=== PATIENT | male | born 1950 | race Caucasian/White ===

== ENCOUNTER 2018-10-12 08:07 | Outpatient (CLI) | payer MEDICARE, BC ==
--- NOTE | 2018-10-12 08:45 | ULT ---
ULTRASOUND RENAL DOPPLER DUPLEX: DATE: 10/12/2018 HISTORY: 68-year-old male with stage III Chronic kidney disease and hypertension FINDINGS: Right kidney: 10.5 x 7 x 5 cm Left kidney: 11 x 7 x 5.5 cm No hydronephrosis. Bladder volume 115 mm. Normal wall thickness. No moderate sized or large renal cystic or solid mass. Highest peak systolic velocity: Right renal artery: 235 cm/s Left renal artery: 145 cm/s Aorta: 105 cm/s Right renal artery/aorta ratio: 2.2 Left renal artery/aorta ratio: 1.4 Resistive index: Right arcuate: 0.70 Left arcuate: 0.65. IMPRESSION: 1) no morphologic abnormality of the kidneys identified. 2) elevated right renal artery systolic velocity. Estimated degree of stenosis less than 60%.
== END 2018-10-12 08:08 | disposition home or self-care (01) ==
LOC: BICULT 08:07
PROVIDERS: ATTEND Internal Medicine Nephrology
DX: I12.9 Hypertensive chronic kidney disease with stage 1 through stage 4 chronic kidney disease, or unspecified chronic kidney disease (principal); N18.3 Chronic kidney disease, stage 3 (moderate)
CPT/HCPCS: 36415; 76700; 76770; 80051; 82306; 82565; 82570; 83970; 84156; 84520; 85014; 85018

== ENCOUNTER 2021-03-15 08:27 | Day surgery (SDC) | payer MEDICARE ==
[2021-03-08 10:54] VITALS: BMI 25.8
[2021-03-15 09:20] LABS: INR-International Normal Ratio 0.9; PTT 27.6 sec (22.9-36.1); Prothrombin Time 12.5 sec (12.0-14.7)
[2021-03-15 12:34] VITALS: BP 122/70; TEMP 97.7
== END 2021-03-15 12:45 | disposition home or self-care (01) ==
LOC: CT 08:27
PROVIDERS: ATTEND Internal Medicine Nephrology
PROC: 0TB13ZX Excision of Left Kidney, Percutaneous Approach, Diagnostic (ICD-10-PCS; principal; 2021-03-15)
DX: I12.9 Hypertensive chronic kidney disease with stage 1 through stage 4 chronic kidney disease, or unspecified chronic kidney disease (principal); N18.4 Chronic kidney disease, stage 4 (severe); D63.1 Anemia in chronic kidney disease; R80.9 Proteinuria, unspecified; E78.5 Hyperlipidemia, unspecified; I25.10 Atherosclerotic heart disease of native coronary artery without angina pectoris; F17.210 Nicotine dependence, cigarettes, uncomplicated; M19.90 Unspecified osteoarthritis, unspecified site; E55.9 Vitamin D deficiency, unspecified; Z79.899 Other long term (current) drug therapy
CPT/HCPCS: 49060; 50200; 77002; 77012; 85610; 85730; 88305; 88313; 88329; 88346; 88348; 88350

== ENCOUNTER 2021-05-12 21:51 | Emergency (ER) | payer MEDICARE ==
[2021-05-12] MEDS ORDERED: Acetaminophen 500 MG TAB ONE (23:56)
[2021-05-13 12:15] LABS: SARS-CoV-2 PCR by NAA DETECTED (NotDetected)
== END 2021-05-13 00:35 | disposition home or self-care (01) ==
LOC: ERS 21:51
DX: U07.1 COVID-19 (principal)
CPT/HCPCS: 71045; 87804 ×2; U0003; U0005

== ENCOUNTER → 2023-10-01 | Outpatient (CLI) | payer MEDICARE | LOC: PET 09:30 | PROVIDERS: ATTEND Internal Medicine | DX: R91.8 Other nonspecific abnormal finding of lung field (principal); N18.9 Chronic kidney disease, unspecified; D63.1 Anemia in chronic kidney disease; K11.8 Other diseases of salivary glands | CPT/HCPCS: 78815; A9552 ==

== ENCOUNTER 2023-10-23 08:21 | Day surgery (SDC) | payer MEDICARE ==
[2023-10-23 08:43] LABS: #Basophils 0.11 10x3/uL (0.0-0.2); %Basophils 0.8 % (0.0-1.0); %Eosinophils 6.3 % (0.0-10.0); %Lymphocytes 9.3 % (21.0-51.0); %Monocytes 7.2 % (0.0-10.0); %Neutrophils 75.7 % (42.0-75.0); Hematocrit 31.9 % (42.0-52.0); Hemoglobin 10.4 g/dL (14.0-18.0); Mean Corpuscular HGB CONC 32.6 g/dL (32.0-36.0); Mean Corpuscular Hemoglobin 29.9 pg (27.0-31.0); Mean Corpuscular Volume 91.7 fL (78.0-98.0); Mean Platelet Volume 9.5 fL (7.4-10.4); Platelet Count 302 10x3/uL (130-400); RBC Distribution Width 16.9 % (11.5-14.5); Red Blood Cell (RBC) Count 3.48 mill/uL (4.70-6.10)
[2023-10-23 09:06] LABS: PTT 27.1 sec (22.9-36.1)
[2023-10-23] MEDS ORDERED: Lidocaine 1% w/Epinephrine 1:100K 20 ML VIAL ONE (09:28)
[2023-10-23] MEDS ORDERED: fentaNYL 50 mcg/mL 1 mL Vial ONE (09:28)
[2023-10-23] MEDS ORDERED: Midazolam HCl 2 mg/2 ml Vial ONE (09:28)
[2023-10-23] MEDS ORDERED: Sodium Bicarbonate 2.5 MEQ/5 ML SDV ONE (09:28)
[2023-10-23 09:47] VITALS: BP 139/69; TEMP 97.7
== END 2023-10-23 12:50 | disposition home or self-care (01) ==
LOC: CT 08:21
PROVIDERS: ATTEND Internal Medicine
PROC: 0FB13ZX Excision of Right Lobe Liver, Percutaneous Approach, Diagnostic (ICD-10-PCS; principal; 2023-10-23)
DX: C34.31 Malignant neoplasm of lower lobe, right bronchus or lung (principal); D11.0 Benign neoplasm of parotid gland; N18.9 Chronic kidney disease, unspecified; D63.1 Anemia in chronic kidney disease
CPT/HCPCS: 32408; 71045; 71046; 77012; 85025; 85610; 85730; 88333; 88334; C1757; J2250; J3010; 36415; 88305; 88341; 88342

== ENCOUNTER 2023-11-03 07:25 | Day surgery (SDC) | payer MEDICARE ==
[2023-10-31 09:51] VITALS: BMI 25.9
[2023-11-03] MEDS ORDERED: Bupivacaine PF 0.5% 30 ML VIAL ONE (09:10)
[2023-11-03 09:15] LABS: Hematocrit 29.9 % (42.0-52.0); Hemoglobin 9.6 g/dL (14.0-18.0); Mean Corpuscular HGB CONC 32.1 g/dL (32.0-36.0); Mean Corpuscular Hemoglobin 30.1 pg (27.0-31.0); Mean Corpuscular Volume 93.7 fL (78.0-98.0); Mean Platelet Volume 9.7 fL (7.4-10.4); Platelet Count 270 10x3/uL (130-400); RBC Distribution Width 17.1 % (11.5-14.5); Red Blood Cell (RBC) Count 3.19 mill/uL (4.70-6.10)
[2023-11-03 09:26] LABS: Anion Gap 16 mmol/L (10-20); BUN (Urea Nitrogen) 69 mg/dL (8.4-25.7); Calc. Creatinine Clearance 14 mL/min (70-130); Calcium 9.5 mg/dL (7.8-10.44); Carbon Dioxide 14 mmol/L (23-31); Chloride 113 mmol/L (98-107); Estimated GFR 11; Glucose 95 mg/dL (83-110); Potassium 5.1 mmol/L (3.5-5.1); Sodium 138 mmol/L (136-145)
[2023-11-03] MEDS ORDERED: CEFAZOLIN 2 GM VIAL ONE (09:40)
[2023-11-03] MEDS ORDERED: Sodium Chloride 0.9% 100 ML ONE (09:40)
[2023-11-03] MEDS ORDERED: fentaNYL PF 100 MCG/2 ML SYRINGE ONE (09:47)
[2023-11-03] MEDS ORDERED: Lidocaine 2% PF 5 ML VIAL ONE (09:48)
[2023-11-03] MEDS ORDERED: PROPOFOL 20 ML ONE (09:48)
[2023-11-03] MEDS ORDERED: Rocuronium Bromide 10 MG/ML (10ML VIAL) ONE (09:49)
[2023-11-03] MEDS ORDERED: NOREPINEPHRINE 8 MG/250 ML-D5W 250 ML ONE (09:49)
[2023-11-03] MEDS ORDERED: Ondansetron PF 4 MG/2 ML Vial ONE (10:24)
[2023-11-03] MEDS ORDERED: Dexamethasone 20 MG/5 ML VIAL ONE (10:24)
[2023-11-03] MEDS ORDERED: SUGAMMADEX SODIUM 200 MG/2 ML VIAL ONE (12:17)
[2023-11-03] MEDS ORDERED: HYDROcodone/Acetaminophen 5/325 mg Tablet ONE (15:29)
== END 2023-11-03 15:48 | disposition home or self-care (01) ==
LOC: SDC 07:25
PROVIDERS: ATTEND Student in an Organized Health Care Education/Training Program
PROC: 0JH60WZ Insertion of Totally Implantable Vascular Access Device into Chest Subcutaneous Tissue and Fascia, Open Approach (ICD-10-PCS; principal; 2023-11-03)
PROC: 07B74ZX Excision of Thorax Lymphatic, Percutaneous Endoscopic Approach, Diagnostic (ICD-10-PCS; 2023-11-03)
DX: C34.31 Malignant neoplasm of lower lobe, right bronchus or lung (principal); D76.3 Other histiocytosis syndromes; I12.9 Hypertensive chronic kidney disease with stage 1 through stage 4 chronic kidney disease, or unspecified chronic kidney disease; N18.9 Chronic kidney disease, unspecified; F17.210 Nicotine dependence, cigarettes, uncomplicated; Z79.899 Other long term (current) drug therapy
CPT/HCPCS: 36561; 39402; 71045; 80048; 85027; 93005; C1788; J0665; J1100; J1642; J2001; J2405; J2704; J3490; 88305; 88341; 88342; 93010

== ENCOUNTER 2023-11-11 12:18 | Outpatient (CLI) | payer MEDICARE | END 2023-11-11 12:19 | disposition home or self-care (01) | LOC: RAD 12:18 | PROVIDERS: ATTEND Student in an Organized Health Care Education/Training Program | DX: C34.31 Malignant neoplasm of lower lobe, right bronchus or lung (principal) | CPT/HCPCS: 71046 ==

== ENCOUNTER 2024-01-23 15:18 | Emergency (ER) | payer MEDICARE ==
[~2024-01-23 15:18] MED LIST: Heparin 10,000 UNITS/ 10 ML VIAL ONE
[2024-01-23 16:20] LABS: #Basophils Less than 0.03 10x3/uL (0.0-0.2); #Eosinphils Less than 0.03 10x3/uL (0.0-0.7); %Basophils 0.4 % (0.0-1.0); %Lymphocytes 27.1 % (21.0-51.0); %Monocytes 8.3 % (0.0-10.0); %Neutrophils 63.8 % (42.0-75.0); Hematocrit 19.5 % (42.0-52.0); Hemoglobin 6.1 g/dL (14.0-18.0); Mean Corpuscular HGB CONC 31.3 g/dL (32.0-36.0); Mean Corpuscular Volume 96.1 fL (78.0-98.0); Platelet Count 137 10x3/uL (130-400); Red Blood Cell (RBC) Count 2.03 mill/uL (4.70-6.10)
[2024-01-23 16:37] LABS: ALT (SGPT) 11 U/L (8-55); AST (SGOT) 8 U/L (5-34); Albumin 3.1 g/dL (3.4-4.8); Alkaline Phosphatase 68 U/L (40-110); Anion Gap 15 mmol/L (10-20); BUN (Urea Nitrogen) 58 mg/dL (8.4-25.7); Bilirubin, Total 0.3 mg/dL (0.2-1.2); Calc. Creatinine Clearance 0 mL/min (70-130); Calcium 8.8 mg/dL (7.8-10.44); Carbon Dioxide 24 mmol/L (23-31); Chloride 102 mmol/L (98-107); Estimated GFR 8; Globulin 3.1 g/dL (2.4-3.5); Glucose 81 mg/dL (83-110); Potassium 4.3 mmol/L (3.5-5.1); Protein, Total 6.2 g/dL (5.8-8.1); Sodium 137 mmol/L (136-145)
[2024-01-23] MEDS ORDERED: Epoetin (ESRD) 10,000 UNITS/ML VIAL IVP SCH (22:00)
[2024-01-23] MEDS ORDERED: EPOETIN ALFA-EPBX 10,000 UNITS/ML VIAL SC SCH (22:00)
[2024-01-23 23:37] LABS: HBSAB Concentration Less than 8.00 mIU/mL; HBsAg Index 0.29 S/CO (0-0.99); Hep B Core Total Ab NONREACTIVE (NonReactive); Hep B Core Total Index 0.09 S/CO (0-0.79); Hep B Surf AB NONREACTIVE (NonReactive); Hep B Surf Ag NONREACTIVE S/CO (NonReactive); Hep C IgG Ab NONREACTIVE S/CO (NonReactive); Hep C Index 0.05 S/CO (0-0.79)
[2024-01-30] MEDS ORDERED: EPOETIN ALFA-EPBX 10,000 UNITS/ML VIAL SC SCH (21:00)
== END 2024-01-24 03:52 | disposition home or self-care (01) ==
LOC: ERS 15:18
DX: N18.6 End stage renal disease (principal); D63.1 Anemia in chronic kidney disease; I12.0 Hypertensive chronic kidney disease with stage 5 chronic kidney disease or end stage renal disease; Z99.2 Dependence on renal dialysis; Z87.891 Personal history of nicotine dependence; Z79.82 Long term (current) use of aspirin
CPT/HCPCS: 36430; 80053; 85025; 86704; 86706; 86803; 86850; 86900; 86901; 86920; 87340; 99284; J1644; P9016; 36415

== ENCOUNTER 2024-01-29 06:18 | Inpatient (IN) | payer MEDICARE ==
[2024-01-28 10:34] VITALS: BMI 24.6
[2024-01-29] MEDS ORDERED: Protamine Sulfate 50 MG/5 ML VIAL ONE (07:02)
[2024-01-29] MEDS ORDERED: Heparin 5,000 UNITS/ML VIAL ONE (07:02)
[2024-01-29] MEDS ORDERED: Bupivacaine PF 0.5% 30 ML VIAL ONE (07:02)
[2024-01-29] MEDS ORDERED: EPINEPHrine 1 MG/ML VIAL ONE (07:02)
[2024-01-29 07:23] LABS: Hematocrit 24.8 % (42.0-52.0); Hemoglobin 7.9 g/dL (14.0-18.0); Mean Corpuscular HGB CONC 31.9 g/dL (32.0-36.0); Mean Corpuscular Hemoglobin 29.9 pg (27.0-31.0); Mean Corpuscular Volume 93.9 fL (78.0-98.0); Mean Platelet Volume 9.5 fL (7.4-10.4); Platelet Count 186 10x3/uL (130-400); RBC Distribution Width 17.2 % (11.5-14.5); Red Blood Cell (RBC) Count 2.64 mill/uL (4.70-6.10)
[2024-01-29 07:43] LABS: Anion Gap 11 mmol/L (10-20); BUN (Urea Nitrogen) 25 mg/dL (8.4-25.7); Calc. Creatinine Clearance 15 mL/min (70-130); Carbon Dioxide 29 mmol/L (23-31); Chloride 101 mmol/L (98-107); Estimated GFR 12; Glucose 101 mg/dL (83-110); Potassium 4.1 mmol/L (3.5-5.1); Sodium 137 mmol/L (136-145)
[2024-01-29 08:13] LABS: Band 5 % (5-11); Lymphocytes 22 % (21-51); Monocytes 20 % (0-10); Neutrophil 49 % (42-75); Platelet Adequacy Comment Platelets Normal; RBC Morphology Within Normal Limits; Reactive Lymphocytes 2 % (0-10)
[2024-01-29] MEDS ORDERED: Ondansetron PF 4 MG/2 ML Vial ONE (10:34)
[2024-01-29] MEDS ORDERED: Lidocaine 1% PF 5 ML VIAL ONE (10:34)
[2024-01-29] MEDS ORDERED: Dexamethasone 20 MG/5 ML VIAL ONE (10:34)
[2024-01-29] MEDS ORDERED: PROPOFOL 20 ML ONE (10:35)
[2024-01-29] MEDS ORDERED: fentaNYL 50 mcg/mL 1 mL Vial ONE ×2 (10:35→11:57)
[2024-01-29] MEDS ORDERED: Heparin 10,000 UNITS/ 10 ML VIAL ONE (10:36)
[2024-01-29] MEDS ORDERED: Bupivacaine 0.25% HCL 30 ML VIAL ONE (10:36)
[2024-01-29] MEDS ORDERED: CEFAZOLIN 1 GM VIAL ONE (11:08)
[2024-01-29] MEDS ORDERED: Sodium Chloride 0.9% 250 ML 250 ML ONE ×2 (11:50)
[2024-01-29] MEDS ORDERED: Heparin 1,000 UNITS/ML VIAL ONE (14:04)
[2024-01-29] MEDS ORDERED: HYDROcodone/Acetaminophen 5/325 mg Tablet ONE (14:15)
== END 2024-01-29 15:14 | disposition home or self-care (01) | DRG 981 ==
LOC: SURG A 06:18 → EDSTATUS 15:53
PROVIDERS: ADMIT Specialist; ATTEND Specialist
PROC: 05S90ZZ Reposition Right Brachial Vein, Open Approach (ICD-10-PCS; principal; 2024-01-29)
PROC: 30233N1 Transfusion of Nonautologous Red Blood Cells into Peripheral Vein, Percutaneous Approach (ICD-10-PCS; 2024-01-29)
PROC: 3E033XZ Introduction of Vasopressor into Peripheral Vein, Percutaneous Approach (ICD-10-PCS; 2024-01-29)
DX: I12.0 Hypertensive chronic kidney disease with stage 5 chronic kidney disease or end stage renal disease (principal); N18.6 End stage renal disease; C34.91 Malignant neoplasm of unspecified part of right bronchus or lung; E11.22 Type 2 diabetes mellitus with diabetic chronic kidney disease; Z79.899 Other long term (current) drug therapy; D63.1 Anemia in chronic kidney disease; Z99.2 Dependence on renal dialysis; L98.8 Other specified disorders of the skin and subcutaneous tissue; Z98.890 Other specified postprocedural states
CPT/HCPCS: 36430; 80048; 85025; 86850; 86900; 86901; J0171; J0665; J0690; J1100; J1642; J1644; J2405; J2704; J2720; J3010; J7050; P9016

== ENCOUNTER 2024-02-03 11:00 | Outpatient (CLI) | payer MEDICARE | END 2024-02-03 11:01 | disposition home or self-care (01) | LOC: PET 11:00 | PROVIDERS: ATTEND Internal Medicine | DX: C34.32 Malignant neoplasm of lower lobe, left bronchus or lung (principal); R91.1 Solitary pulmonary nodule; K11.8 Other diseases of salivary glands | CPT/HCPCS: 78815; A9552 ==

== ENCOUNTER 2024-02-23 09:09 | Outpatient (CLI) | payer MEDICARE | END 2024-02-23 09:10 | disposition home or self-care (01) | LOC: LABBT 09:09 | PROVIDERS: ATTEND Student in an Organized Health Care Education/Training Program | DX: Z01.818 Encounter for other preprocedural examination (principal); C34.31 Malignant neoplasm of lower lobe, right bronchus or lung | CPT/HCPCS: 71046; 93005; 93010 ==

== ENCOUNTER 2024-02-24 08:30 | Inpatient (IN) | payer MEDICARE ==
[2024-02-26] MEDS ORDERED: Bupivacaine 0.25% HCL 30 ML VIAL ONE (06:41)
[2024-02-26] MEDS ORDERED: EPINEPHrine 1 MG/ML VIAL ONE (06:41)
[2024-02-26] MEDS ORDERED: Rocuronium Bromide 10 MG/ML (10ML VIAL) ONE ×2 (06:59→09:23)
[2024-02-26] MEDS ORDERED: Lidocaine 1% PF 5 ML VIAL ONE (06:59)
[2024-02-26] MEDS ORDERED: PROPOFOL 20 ML ONE (06:59)
[2024-02-26] MEDS ORDERED: fentaNYL PF 100 MCG/2 ML SYRINGE ONE ×2 (06:59→11:29)
[2024-02-26] MEDS ORDERED: CEFAZOLIN 2 GM VIAL ONE (07:29)
[2024-02-26] MEDS ORDERED: PHENYLEPHRINE-NS 100 MCG/ML 10 ML SYRINGE ONE (07:39)
[2024-02-26 07:55] LABS: #Basophils 0.06 10x3/uL (0.0-0.2); #Eosinophils Less than 0.03 10x3/uL (0.0-0.7); %Basophils 0.7 % (0.0-1.0); %Eosinophils 0.1 % (0.0-10.0); %Lymphocytes 13.6 % (21.0-51.0); %Monocytes 11.2 % (0.0-10.0); %Neutrophils 73.4 % (42.0-75.0); Hematocrit 26.8 % (42.0-52.0); Hemoglobin 8.6 g/dL (14.0-18.0); Mean Corpuscular HGB CONC 32.1 g/dL (32.0-36.0); Mean Corpuscular Hemoglobin 33.2 pg (27.0-31.0); Mean Corpuscular Volume 103.5 fL (78.0-98.0); Mean Platelet Volume 9.6 fL (7.4-10.4); Platelet Count 232 10x3/uL (130-400); RBC Distribution Width 21.7 % (11.5-14.5); Red Blood Cell (RBC) Count 2.59 mill/uL (4.70-6.10)
[2024-02-26] MEDS ORDERED: Dexamethasone 4 mg/ml Vial ONE ×2 (08:17)
[2024-02-26] MEDS ORDERED: Ondansetron PF 4 MG/2 ML Vial ONE (08:17)
[2024-02-26 08:23] LABS: Anion Gap 17 mmol/L (10-20); BUN (Urea Nitrogen) 29 mg/dL (8.4-25.7); Calc. Creatinine Clearance 15 mL/min (70-130); Calcium 9.4 mg/dL (7.8-10.44); Carbon Dioxide 28 mmol/L (23-31); Chloride 99 mmol/L (98-107); Estimated GFR 12; Glucose 109 mg/dL (83-110); Potassium 3.8 mmol/L (3.5-5.1); Sodium 140 mmol/L (136-145)
[2024-02-26] MEDS ORDERED: Phenylephrine 40 MG/NS 250 ML 250 ML ONE (08:30)
[2024-02-26] MEDS ORDERED: SUGAMMADEX SODIUM 200 MG/2 ML VIAL ONE ×2 (11:46→11:51)
[2024-02-26] MEDS ORDERED: Promethazine HCl 25 MG/ML VIAL IM PRN (12:12)
[2024-02-26] MEDS ORDERED: Ondansetron HCl/PF 4 MG/2 ML Vial IVP PRN (12:12)
[2024-02-26] MEDS ORDERED: Mineral Oil ENEMA PR PRN (13:17)
[2024-02-26] MEDS ORDERED: traMADol HCl 50 MG TAB PO PRN (13:17)
[2024-02-26] MEDS ORDERED: Ondansetron PF 4 MG/2 ML Vial IVP PRN (13:17)
[2024-02-26] MEDS ORDERED: Ipratropium/Albuterol 3 ML NEB NEB PRN (13:17)
[2024-02-26] MEDS ORDERED: Milk Of Magnesia 30 ML UDCUP PO PRN (13:17)
[2024-02-26] MEDS ORDERED: Cyclobenzaprine 10 MG TAB PO PRN (13:17)
[2024-02-26] MEDS ORDERED: traZODone HCl 50 MG TAB PO PRN (13:17)
[2024-02-26] MEDS ORDERED: CEFAZOLIN 2 GM in Sodium Chloride 0.9% 100 ML IVPB SCH ×2 (14:00→16:00)
[2024-02-26 14:41] VITALS: BMI 25.0
[2024-02-26] MEDS: Acetaminophen 325 MG TAB PO SCH (16:07)
[2024-02-26] MEDS: Heparin 5,000 UNITS/ML VIAL SC SCH (16:08)
[2024-02-26] MEDS: Sevelamer Carbonate 800 MG TAB PO SCH (16:08)
[2024-02-26] MEDS: Gabapentin 100 MG CAP PO SCH (16:08)
[2024-02-26] MEDS: HYDROcodone/Acetaminophen 5/325 mg Tablet PO PRN (16:12)
[2024-02-26] MEDS ORDERED: Ketorolac Tromethamine 30 MG (1 mL) VIAL IVP SCH (18:00)
[2024-02-26 18:20] LABS: HBSAB Concentration Less than 8.00 mIU/mL; HBsAg Index 0.28 S/CO (0-0.99); Hep B Core Total Ab NONREACTIVE (NonReactive); Hep B Core Total Index 0.07 S/CO (0-0.79); Hep B Surf AB NONREACTIVE (NonReactive); Hep B Surf Ag NONREACTIVE S/CO (NonReactive); Hep C IgG Ab NONREACTIVE S/CO (NonReactive); Hep C Index 0.06 S/CO (0-0.79)
[2024-02-26] MEDS: Carvedilol 6.25 MG TAB PO SCH (20:50)
[2024-02-26] MEDS: Rosuvastatin 10 MG TAB PO SCH (20:51)
[2024-02-27 04:01] LABS: #Basophils 0.04 10x3/uL (0.0-0.2); #Eosinophils Less than 0.03 10x3/uL (0.0-0.7); %Basophils 0.3 % (0.0-1.0); %Lymphocytes 10.7 % (21.0-51.0); %Monocytes 11.9 % (0.0-10.0); %Neutrophils 76.5 % (42.0-75.0); Hematocrit 24.7 % (42.0-52.0); Hemoglobin 7.8 g/dL (14.0-18.0); Mean Corpuscular HGB CONC 31.6 g/dL (32.0-36.0); Mean Corpuscular Hemoglobin 32.8 pg (27.0-31.0); Mean Corpuscular Volume 103.8 fL (78.0-98.0); Mean Platelet Volume 9.9 fL (7.4-10.4); Platelet Count 193 10x3/uL (130-400); RBC Distribution Width 22.3 % (11.5-14.5); Red Blood Cell (RBC) Count 2.38 mill/uL (4.70-6.10)
[2024-02-27 04:18] LABS: Anion Gap 16 mmol/L (10-20); BUN (Urea Nitrogen) 43 mg/dL (8.4-25.7); Calc. Creatinine Clearance 11 mL/min (70-130); Calcium 8.8 mg/dL (7.8-10.44); Carbon Dioxide 27 mmol/L (23-31); Chloride 100 mmol/L (98-107); Estimated GFR 9; Glucose 114 mg/dL (83-110); Potassium 4.1 mmol/L (3.5-5.1); Sodium 139 mmol/L (136-145)
[2024-02-27] MEDS ORDERED: Heparin 10,000 UNITS/ 10 ML VIAL ONE (09:42)
[2024-02-27] MEDS: Aspirin 81 mg Enteric Coated Tablet PO SCH (10:48)
[2024-02-27] MEDS: Docusate Sodium 100 MG/10 ML UDCUP PO SCH (10:48)
[2024-02-27] MEDS: hydrALAZINE 25 MG TAB PO SCH (10:49)
[2024-02-27] MEDS ORDERED: Epoetin (ESRD) 10,000 UNITS/ML VIAL IVP SCH (12:00)
[2024-02-27] MEDS: traMADol HCl 50 MG TAB PO PRN (14:07)
[2024-02-27] MEDS: CEFAZOLIN 1 GM in Sodium Chloride 0.9% 100 ML IVPB SCH (14:09)
[2024-02-27] MEDS: Lidocaine 4% Patch TD SCH (14:09)
[2024-02-27] MEDS: HYDROcodone/Acetaminophen 5/325 mg Tablet PO PRN (15:55)
[2024-02-27] MEDS: EPOETIN ALFA-EPBX (ESRD) 10,000 UNITS/ML VIAL IVP SCH (15:57)
[2024-02-27] MEDS: Transdermal Patch Removal TOP SCH (22:24)
[2024-02-28] MEDS: Sevelamer Carbonate 800 MG TAB PO SCH (08:17)
[2024-02-28] MEDS: guaiFENesin ER 600 MG TAB PO SCH ×2 (10:49→20:57)
[2024-02-29] MEDS: Senokot S 8.6-50 MG TAB PO SCH ×2 (11:32→20:26)
[2024-02-29] MEDS: CEFAZOLIN 1 GM in Sodium Chloride 0.9% 100 ML IVPB SCH (20:26)
[2024-03-01] MEDS ORDERED: Heparin 10,000 UNITS/ 10 ML VIAL ONE (08:55)
[2024-03-01 11:16] LABS: #Basophils 0.03 10x3/uL (0.0-0.2); %Basophils 0.3 % (0.0-1.0); %Eosinophils 0.6 % (0.0-10.0); %Lymphocytes 14.2 % (21.0-51.0); %Monocytes 10.5 % (0.0-10.0); %Neutrophils 72.4 % (42.0-75.0); Hematocrit 23.9 % (42.0-52.0); Hemoglobin 7.3 g/dL (14.0-18.0); Mean Corpuscular HGB CONC 30.5 g/dL (32.0-36.0); Mean Corpuscular Hemoglobin 33.3 pg (27.0-31.0); Mean Corpuscular Volume 109.1 fL (78.0-98.0); Mean Platelet Volume 9.5 fL (7.4-10.4); Platelet Count 172 10x3/uL (130-400); Red Blood Cell (RBC) Count 2.19 mill/uL (4.70-6.10)
[2024-03-01 11:42] LABS: Anion Gap 20 mmol/L (10-20); BUN (Urea Nitrogen) 62 mg/dL (8.4-25.7); Calc. Creatinine Clearance 7 mL/min (70-130); Calcium 8.6 mg/dL (7.8-10.44); Carbon Dioxide 22 mmol/L (23-31); Chloride 99 mmol/L (98-107); Estimated GFR 5; Glucose 112 mg/dL (83-110); Sodium 137 mmol/L (136-145)
[2024-03-01] MEDS ORDERED: Vancomycin Diaylsis Sliding Scale (Wt 71-99) FS SCH (12:45)
[2024-03-01] MEDS: Vancomycin (BATCH) 1.5 GM in Premix 1 BAG IVPB SCH (12:56)
[2024-03-01] MEDS: Vancomycin 1.5 GM in Sodium Chloride 0.9% 250 ML 300 ML IVPB SCH (13:02)
[2024-03-02] MEDS: Bisacodyl 10 MG SUPP PR PRN (02:20)
[2024-03-02 12:32] LABS: Actual Bicarbonate (HCO3a) 27.2 mEq/L (22-28); Analyzer IN Cardio OR; Base Excess (BEa) 1.8 mEq/L (-2.0 to +3.0); CO2 Tension 46.8 mmHg (35.0-45.0); Calcium, Ionized (arterial) 1.12 mmol/L (1.12-1.30); Carboxyhemoglobin (COHb) 0.6 gm% (0.0-3.0); Hematocrit-ABG 26 % (42.0-52.0); O2 Tension (PaO2), arterial 111.4 mmHg (> 70.0); Potassium - ABG Lab 4.77 mmol/L (3.70-5.30); pH, Arterial 7.382 (7.35-7.45)
[2024-03-02 12:33] LABS: Puncture Site Arterial Line
[2024-03-03 04:19] LABS: #Basophils 0.03 10x3/uL (0.0-0.2); %Basophils 0.4 % (0.0-1.0); %Eosinophils 0.4 % (0.0-10.0); %Lymphocytes 15.9 % (21.0-51.0); %Monocytes 11.5 % (0.0-10.0); %Neutrophils 68.9 % (42.0-75.0); Hematocrit 24.1 % (42.0-52.0); Hemoglobin 7.3 g/dL (14.0-18.0); Mean Corpuscular HGB CONC 30.3 g/dL (32.0-36.0); Mean Platelet Volume 9.4 fL (7.4-10.4); Platelet Count 159 10x3/uL (130-400); RBC Distribution Width 21.3 % (11.5-14.5); Red Blood Cell (RBC) Count 2.21 mill/uL (4.70-6.10)
[2024-03-03 07:47] LABS: Vancomycin, Trough 18.2 ug/mL
[2024-03-03] MEDS ORDERED: Heparin 10,000 UNITS/ 10 ML VIAL ONE (08:38)
[2024-03-03 09:06] LABS: Anion Gap 19 mmol/L (10-20); BUN (Urea Nitrogen) 43 mg/dL (8.4-25.7); Calc. Creatinine Clearance 10 mL/min (70-130); Calcium 9.1 mg/dL (7.8-10.44); Carbon Dioxide 22 mmol/L (23-31); Chloride 104 mmol/L (98-107); Estimated GFR 7; Glucose 99 mg/dL (83-110); Potassium 4.5 mmol/L (3.5-5.1); Sodium 140 mmol/L (136-145)
[2024-03-03] MEDS: Lidocaine 1% w/Epinephrine 1:100K 20 ML VIAL IJ SCH ×2 (09:39→15:03)
[2024-03-03] MEDS: Vancomycin HCl 750 MG in Sodium Chloride 0.9% 250 ML 250 ML IVPB SCH (15:02)
[2024-03-03] MEDS: Mupirocin 2% Ointment 22 GM Tube TOP SCH (15:02)
[2024-03-03 15:36] VITALS: BP 159/78; TEMP 98.4
[2024-03-03] MEDS ORDERED: Vancomycin HCl 750 MG in Sodium Chloride 0.9% 250 ML 250 ML IVPB SCH (17:00)
== END 2024-03-03 17:14 | disposition home or self-care (01) | DRG 163 ==
LOC: SURG A 02-26 06:19 → 2NO 02-26 15:18
PROVIDERS: ADMIT Student in an Organized Health Care Education/Training Program; ATTEND Student in an Organized Health Care Education/Training Program
PROC: 0BTF4ZZ Resection of Right Lower Lung Lobe, Percutaneous Endoscopic Approach (ICD-10-PCS; principal; 2024-02-26)
PROC: 07B74ZZ Excision of Thorax Lymphatic, Percutaneous Endoscopic Approach (ICD-10-PCS; 2024-02-26)
PROC: 8E0W4CZ Robotic Assisted Procedure of Trunk Region, Percutaneous Endoscopic Approach (ICD-10-PCS; 2024-02-26)
PROC: 4A033R1 Measurement of Arterial Saturation, Peripheral, Percutaneous Approach (ICD-10-PCS; 2024-02-26)
PROC: 3E033XZ Introduction of Vasopressor into Peripheral Vein, Percutaneous Approach (ICD-10-PCS; 2024-02-26)
PROC: 30233N1 Transfusion of Nonautologous Red Blood Cells into Peripheral Vein, Percutaneous Approach (ICD-10-PCS; 2024-03-03)
DX: C34.31 Malignant neoplasm of lower lobe, right bronchus or lung (principal); N18.6 End stage renal disease; I12.0 Hypertensive chronic kidney disease with stage 5 chronic kidney disease or end stage renal disease; J95.811 Postprocedural pneumothorax; D84.9 Immunodeficiency, unspecified; T82.7XXA Infection and inflammatory reaction due to other cardiac and vascular devices, implants and grafts, initial encounter; D63.1 Anemia in chronic kidney disease; R59.0 Localized enlarged lymph nodes; Z99.2 Dependence on renal dialysis
CPT/HCPCS: 36415; 36416; 36430; 71045; 80048; 80202; 82805; 85025; 86704; 86706; 86803; 86850; 86900; 86901; 87040; 87340; 88305; 88309; A4314; C1713; C1776; J0171; J0665; J0690; J1100; J1644; J2405; J2704; J3370; J7050; P9016; Q5105

== ENCOUNTER 2024-03-10 13:05 | Outpatient (CLI) | payer MEDICARE | END 2024-03-10 13:06 | disposition home or self-care (01) | LOC: RAD 13:05 | PROVIDERS: ATTEND Student in an Organized Health Care Education/Training Program | DX: C34.31 Malignant neoplasm of lower lobe, right bronchus or lung (principal); J90 Pleural effusion, not elsewhere classified | CPT/HCPCS: 71046 ==

== ENCOUNTER → 2024-06-17 | Day surgery (SDC) | payer MEDICARE ==
[~2024-06-17] MED LIST changes: -Heparin 10,000 UNITS/ 10 ML VIAL ONE; +Sodium Bicarbonate 2.5 MEQ/5 ML SDV ONE
[2024-06-17 10:45] LABS: #Basophils 0.07 10x3/uL (0.0-0.2); %Basophils 0.6 % (0.0-1.0); %Eosinophils 5.4 % (0.0-10.0); %Lymphocytes 10.8 % (21.0-51.0); %Monocytes 11.6 % (0.0-10.0); %Neutrophils 71.1 % (42.0-75.0); Hematocrit 37.1 % (42.0-52.0); Hemoglobin 11.8 g/dL (14.0-18.0); Mean Corpuscular HGB CONC 31.8 g/dL (32.0-36.0); Mean Corpuscular Hemoglobin 34.1 pg (27.0-31.0); Mean Corpuscular Volume 107.2 fL (78.0-98.0); Platelet Count 236 10x3/uL (130-400); RBC Distribution Width 16.6 % (11.5-14.5); Red Blood Cell (RBC) Count 3.46 mill/uL (4.70-6.10)
[2024-06-17 11:08] LABS: PTT 28.3 sec (22.9-36.1); Prothrombin Time 13.3 sec (12.0-14.7)
== END ==
LOC: ULT 10:23
PROVIDERS: ATTEND Student in an Organized Health Care Education/Training Program
PROC: 0W993ZZ Drainage of Right Pleural Cavity, Percutaneous Approach (ICD-10-PCS; principal; 2024-06-17)
DX: D19.0 Benign neoplasm of mesothelial tissue of pleura (principal); I12.9 Hypertensive chronic kidney disease with stage 1 through stage 4 chronic kidney disease, or unspecified chronic kidney disease; N18.9 Chronic kidney disease, unspecified; Z79.899 Other long term (current) drug therapy
CPT/HCPCS: 32555; 71045; 85025; 85610; 85730; 88112; 88305; 88341; 88342

== ENCOUNTER 2024-11-09 13:10 | Outpatient (CLI) | payer MEDICARE | END 2024-11-09 13:11 | disposition home or self-care (01) | LOC: BICRAD 13:10 | PROVIDERS: ATTEND Internal Medicine | DX: C34.32 Malignant neoplasm of lower lobe, left bronchus or lung (principal); N18.4 Chronic kidney disease, stage 4 (severe); D63.1 Anemia in chronic kidney disease; D50.8 Other iron deficiency anemias; J90 Pleural effusion, not elsewhere classified; Z79.899 Other long term (current) drug therapy | CPT/HCPCS: 71046 ==

== ENCOUNTER 2024-12-23 08:45 | Outpatient (CLI) | payer MEDICARE | END 2024-12-23 08:46 | disposition home or self-care (01) | LOC: PET 08:45 | PROVIDERS: ATTEND Internal Medicine | DX: C34.32 Malignant neoplasm of lower lobe, left bronchus or lung (principal); N18.4 Chronic kidney disease, stage 4 (severe); D63.1 Anemia in chronic kidney disease; D50.8 Other iron deficiency anemias; Z79.899 Other long term (current) drug therapy; R91.8 Other nonspecific abnormal finding of lung field; R59.1 Generalized enlarged lymph nodes; Z96.89 Presence of other specified functional implants; C79.49 Secondary malignant neoplasm of other parts of nervous system; C79.89 Secondary malignant neoplasm of other specified sites; N18.9 Chronic kidney disease, unspecified | CPT/HCPCS: 78815; 84439; 86301; A9552; 80053; 84443; 85025 ==